=== PATIENT | female | born 1950 | race Caucasian/White ===

== ENCOUNTER 2020-08-26 20:01 | Emergency (ER) | payer MEDICARE, BC ==
[2020-08-26] MEDS ORDERED: Famotidine 20 MG/2 ML SDV IVPUSH ONE (20:21)
[2020-08-26] MEDS ORDERED: methylPREDNISolone Sodium Succinate 125 MG/2 ML SDV IVPUSH ONE (20:21)
--- NOTE | 2020-08-26 21:05 | EDM.PDOC ---
ED HPI GENERAL MEDICAL PROBLEM - General Chief Complaint: Allergic Reaction Stated Complaint: JUWAN AMB Time Seen by Provider: 08/26/20 20:12 Source of Information: Reports: Patient, Family History Limitations: Reports: No Limitations - History of Present Illness INITIAL COMMENTS - FREE TEXT/NARRATIVE: Patient is a 59-year-old female who was having a picnic which included banana bread for 4 months when she is noted that her tongue started swallowing eventually became twice its current size. Patient had no wheezing or difficulty breathing but felt that the swelling was starting to go to her throat. Patient had no rash with this and has never had previously similar symptoms. She was able to take 225 mg Benadryl's which had no effect and when paramedics arrived they gave her shot of epinephrine. Patient's tone swelling and other symptoms resolved and by the time she arrived here she is having no symptoms whatsoever. She has not been on any new medicines and had no insect bites or stings. Duration: Resolved Prior to Arrival Location: Reports: Face Improves with: Reports: Medication Worsens with: Reports: None Associated Symptoms: Reports: No Other Symptoms - Related Data Allergies Allergy/AdvReac Type Severity Reaction Status Date / Time No Known Allergies Allergy Verified 08/26/20 20:07 Home Meds: Home Meds Calcium Carbonate [Calcium] 1,500 mg PO DAILY 08/26/20 [History] Cholecalciferol (Vitamin D3) [Vitamin D3] 1,000 unit PO BEDTIME 08/26/20 [History] Cholecalciferol (Vitamin D3) [Vitamin D3] 2,000 unit PO DAILY 08/26/20 [History] EPINEPHrine [Epipen] 0.3 mg IM ASDIRECTED PRN #2 pen 08/26/20 [Rx] FLUoxetine [PROzac] 40 mg PO DAILY 08/26/20 [History] Latanoprost [Xalatan] 1 drop OP BEDTIME 08/26/20 [History] Mv-Min/Iron/Folic/Calcium/Vitk [Women's Daily Formula Tablet] 1 each PO DAILY 08/26/20 [History] Timolol [Betimol] 1 drop OP DAILY 08/26/20 [History] predniSONE [Prednisone] 20 mg PO DAILY #5 tablet 08/26/20 [Rx] Past Medical History HEENT History: Reports: Cataract, Glaucoma Endocrine/Metabolic History: Reports: Obesity/BMI 30+ - Past Surgical History HEENT Surgical History: Reports: Cataract Surgery, Tonsillectomy Female Surgical History: Reports: Hysterectomy Musculoskeletal Surgical History: Reports: Hip Replacement Social & Family History - Tobacco Use Tobacco Use Status *Q: Never Tobacco User - Caffeine Use Caffeine Use: Reports: Coffee - Recreational Drug Use Recreational Drug Use: No ED ROS ALLERGIC REACTION - Review of Systems Review Of Systems: Comprehensive ROS is negative, except as noted in HPI. ED EXAM GENERAL NO PERIP PULSE - Physical Exam Exam: See Below Exam Limited By: No Limitations General Appearance: Alert, No Apparent Distress Throat/Mouth: Normal Inspection, Normal Lips, Normal Oropharynx, No Airway Compromise. No: Inflammation Head: Normocephalic Neck: Normal Inspection, Supple Respiratory/Chest: No Respiratory Distress, Lungs Clear, Normal Breath Sounds Cardiovascular: Regular Rate, Rhythm, No JVD GI/Abdominal: Soft, Non-Tender Extremities: Normal Inspection Neurological: Alert, Oriented, Normal Cognition Psychiatric: Normal Affect, Normal Mood Skin Exam: Warm, Dry, Normal Color, No Rash Course - Vital Signs Text/Narrative:: Patient was given 125 mg Solu-Medrol and 40 mg of Pepcid IV. After observing her for over an hour there is no change in her oropharynx and her uvula remains completely normal no angioedema appreciated. Patient's lungs remain clear. I am discharging her at this point with a prescription for some prednisone and recommendation they lemon picker Pepcid and continue on those 2 medicines for the next 3 days and use Benadryl only as needed. Patient is instructed not to eat any nuts until she is seen by an rn residential and skin tested for nut allergies. She may return to emergency department anytime she is feeling worse. Last Recorded V/S: Last Vital Signs Temp 97.4 F 08/26/20 20:03 Pulse 68 08/26/20 20:03 Resp 18 08/26/20 20:03 BP 169/93 H 08/26/20 20:03 Pulse Ox 98 08/26/20 20:03 - Orders/Labs/Meds Meds: Medications Discontinued Medications Generic Name Dose Route Start Last Admin Trade Name Freq PRN Reason Stop Dose Admin Famotidine 40 mg 08/26/20 20:21 Famotidine 20 Mg/2 Ml Sdv IVPUSH 08/26/20 20:22 ONETIME ONE Methylprednisolone Sodium Succinate 125 mg 08/26/20 20:21 Methylprednisolone Sodium Succinate 125 Mg/2 Ml Sdv IVPUSH 08/26/20 20:22 ONETIME ONE Departure - Departure Time of Disposition: 21:05 Disposition: Home, Self-Care 01 Condition: Good Clinical Impression: Anaphylaxis - Discharge Information Instructions: Anaphylactic Reaction, Adult Referrals: PCP,Not In Area [Primary Care Provider] - Additional Instructions: [id number] Pepcid 20 mg tablets for 3 to 5 days. Prednisone for the next 3 to 5 days. Epi pen only of tongue or throat swelling if you are having difficulty breathing or severe wheezing. No notes of any sort until seen by rn residential and skin tested. Return to ER if worse. Follow-up with PCP if symptoms continue. Sepsis Event Note (ED) - Evaluation Sepsis Screening Result: No Definite Risk - Focused Exam Vital Signs: Vital Signs Temp Pulse Resp BP Pulse Ox 08/26/20 20:03 97.4 F 68 18 169/93 H 98
== END 2020-08-26 21:30 | disposition home or self-care (01) ==
LOC: JD.ED 20:01
DX: T78.2XXA Anaphylactic shock, unspecified, initial encounter (principal); E66.9 Obesity, unspecified; Z68.33 Body mass index [BMI] 33.0-33.9, adult; Z79.899 Other long term (current) drug therapy
CPT/HCPCS: 96374; 96375; 99284; J2930; J3490